=== PATIENT | female | born 2005 | race Caucasian/White ===

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

== ENCOUNTER 2023-05-23 00:35 | Emergency (ER) | payer OTHER ==
[~2023-05-23] VITALS: Ht 162.6 cm; Wt 117.7 kg
[2023-05-23] MEDS ORDERED: IBUP80TA PO (00:48)
[2023-05-23 01:04] LABS: BASO % 0.4 % (0.0-1.0); EOS # 0.1 10^3/uL (0.0-0.5); EOS % 1.1 % (0.0-3.0); HEMATOCRIT 39.5 % (36.0-47.0); HEMOGLOBIN 12.7 g/dl (12.0-15.5); LYMPH # 2.8 10^3/uL (1.5-5.0); LYMPH % 24.9 % (24.0-44.0); MEAN CORPUSCULAR HEMOGLOBIN 27.6 pg (27.0-33.0); MEAN CORPUSCULAR HGB CONC 32.2 g/dl (32.0-36.5); MEAN CORPUSCULAR VOLUME 85.9 fl (80.0-96.0); MONO # 0.6 10^3/uL (0.0-0.8); MONO % 5.4 % (2.0-8.0); NEUTROPHILS # 7.6 10^3/uL (1.5-8.5); NEUTROPHILS % 67.8 % (36.0-66.0); PLATELET COUNT, AUTOMATED 333 10^3/uL (150-450); WHITE BLOOD COUNT 11.2 10^3/uL (4.0-10.0)
[2023-05-23 01:38] LABS: LIPASE 38 U/L (12-53)
[2023-05-23 01:40] LABS: ALBUMIN 3.7 G/DL (3.2-5.2); ALKALINE PHOSPHATASE 126 U/L (46-116); ALT/SGPT 21 U/L (7.0-40); AST/SGOT 13 U/L (<34); BILIRUBIN,DIRECT < 0.1 MG/DL (<0.4); BILIRUBIN,TOTAL 0.2 MG/DL (0.3-1.2); BLOOD UREA NITROGEN 13 MG/DL (9-23); CALCIUM LEVEL 9.4 MG/DL (8.5-10.1); CARBON DIOXIDE LEVEL 26 MMOL/L (20-31); CHLORIDE LEVEL 109 MMOL/L (98-107); CREATININE FOR GFR 0.72 MG/DL (0.55-1.30); GLUCOSE, FASTING 80 MG/DL (60-100); POTASSIUM SERUM 3.9 MMOL/L (3.5-5.1); SODIUM LEVEL 141 MMOL/L (136-145); TOTAL PROTEIN 7.1 G/DL (5.7-8.2)
[2023-05-23 01:42] LABS: HCG, SERUM QUALITATIVE NEGATIVE (NEGATIVE)
[2023-05-23] MEDS ORDERED: medroxyPROGESTERone 5MG TABLET PO ONE (04:40)
[2023-05-23] MEDS ORDERED: PROV10TA PO (04:41)
[2023-05-23 05:10] VITALS: BP 122/71; TEMP 97.6; O2SAT 99
== END 2023-05-23 05:11 | disposition home or self-care (01) ==
LOC: M ED 00:35
DX: N93.8 Other specified abnormal uterine and vaginal bleeding (principal); Z79.810 Long term (current) use of selective estrogen receptor modulators (SERMs); Z79.899 Other long term (current) drug therapy